=== PATIENT | female | born 2000 | race Caucasian/White ===

== ENCOUNTER 2023-03-03 01:17 | Emergency (ER) | payer SELFPAY ==
[~2023-03-03] VITALS: Ht 160 cm; Wt 50.9 kg
[2023-03-03 01:21] VITALS: TEMP 97.4
[2023-03-03 03:27] VITALS: BP 124/70; PULSE 64
== END 2023-03-03 03:27 | disposition home or self-care (01) ==
LOC: COL.ER 01:17
PROVIDERS: Emergency Medicine
DX: S09.90XA Unspecified injury of head, initial encounter (principal); S00.83XA Contusion of other part of head, initial encounter; F10.129 Alcohol abuse with intoxication, unspecified; Z28.310 Unvaccinated for COVID-19; Y04.8XXA Assault by other bodily force, initial encounter